=== PATIENT | female | born 2000 | race Caucasian/White ===

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

== ENCOUNTER 2020-10-10 17:24 | Emergency (ER) | payer MEDICAID ==
[~2020-10-10] VITALS: Ht 162.6 cm; Wt 69.4 kg
[2020-10-10 19:22] LABS: Basophils # (auto) 0.1 10 ^3/uL (0-0.2); Basophils % (auto) 0.7 % (0.0-2.0); Eosinophils # (auto) 0.1 10 ^3/uL (0-0.8); Eosinophils % (auto) 0.7 % (0.0-7.0); Hematocrit 41.1 % (36.0-46.0); Hemoglobin 13.8 g/dL (12.2-16.2); Lymphocytes # (auto) 2.3 10 ^3/uL (0.4-5.4); Mean Corpuscular Hemoglobin 30.8 pg (28.0-32.0); Mean Corpuscular Hgb Conc. 33.7 g/dL (32.0-36.0); Mean Corpuscular Volume 91.6 fL (80.0-100.0); Monocytes # (auto) 0.4 10 ^3/uL (0-1.3); Monocytes % (auto) 4.5 % (0.0-12.0); Neutrophils # (auto) 6.3 10 ^3/uL (1.6-8.6); Neutrophils % (auto) 69.1 % (37.0-80.0); Red Blood Cells 4.48 10^6/uL (4.0-5.20); Red Cell Distribution Width 12.6 % (11.8-14.3); White Blood Cell 9.2 10^3/uL (4.4-10.8)
[2020-10-10 19:39] LABS: Albumin 3.8 g/dL (3.4-5.0); BUN/Creatinine Ratio 11.1; Potassium 3.6 mmol/L (3.5-5.1)
[2020-10-10 19:42] LABS: Bilirubin, Total 0.7 mg/dL (0.2-1.0)
[2020-10-10 22:33] LABS: Urine Bacteria FEW /hpf (None Seen); Urine Blood Negative /uL (Negative); Urine Mucus FEW (None Seen); Urine Specific Gravity 1.027 (1.001-1.035); Urine WBC 9 /hpf (0 - 5); Urine WBC Clumps PRESENT /hpf (None Seen)
[2020-10-10] MEDS ORDERED: LIDOCAINE VISCOUS 2% 15ML UD PO ONE (23:15)
[2020-10-10] MEDS ORDERED: ALUM & MAG HYDROX-SIMETH LIQ(MAALOX) 30 ML PO ONE (23:15)
[2020-10-10] MEDS ORDERED: MORPHINE SULFATE 4 MG/ML SYR/VIAL IV ONE (23:15)
[2020-10-10] MEDS ORDERED: ONDANSETRON HCL 4 MG/2 ML VIAL IV ONE (23:15)
[2020-10-10] MEDS ORDERED: SODIUM CHLORIDE 0.9% 1,000 ML IV ONE (23:15)
[2020-10-10] MEDS ORDERED: IOHEXOL 300 MG/ML 100ML BOTTLE IJ ONE (23:37)
[2020-10-11 03:00] VITALS: BP 111/64
== END 2020-10-11 03:37 | disposition home or self-care (01) ==
LOC: ER 17:24
DX: N83.202 Unspecified ovarian cyst, left side (principal); N39.0 Urinary tract infection, site not specified; F41.9 Anxiety disorder, unspecified; J45.909 Unspecified asthma, uncomplicated; F32.9 Major depressive disorder, single episode, unspecified; Z79.899 Other long term (current) drug therapy
CPT/HCPCS: 36415; 74177; 80053; 81001; 81025; 85025; 96361; 96374; 96375; 99285; J2270; J2405; Q9967

== ENCOUNTER 2020-10-14 12:04 | Emergency (ER) | payer MEDICAID ==
[~2020-10-14] VITALS: Ht 162.6 cm; Wt 70.3 kg
[2020-10-14] MEDS ORDERED: ONDANSETRON HCL 4 MG/2 ML VIAL IV ONE (12:30)
[2020-10-14] MEDS ORDERED: MORPHINE SULFATE 4 MG/ML SYR/VIAL IV ONE (12:30)
[2020-10-14 15:17] LABS: Basophils # (auto) 0 10 ^3/uL (0-0.2); Basophils % (auto) 0.2 % (0.0-2.0); Eosinophils # (auto) 0 10 ^3/uL (0-0.8); Eosinophils % (auto) 0.6 % (0.0-7.0); Hematocrit 43.8 % (36.0-46.0); Hemoglobin 14.9 g/dL (12.2-16.2); Lymphocytes % (auto) 15.3 % (10.0-50.0); Mean Corpuscular Hemoglobin 30.7 pg (28.0-32.0); Mean Corpuscular Hgb Conc. 33.9 g/dL (32.0-36.0); Mean Corpuscular Volume 90.5 fL (80.0-100.0); Monocytes # (auto) 0.2 10 ^3/uL (0-1.3); Monocytes % (auto) 3.2 % (0.0-12.0); Neutrophils # (auto) 5.4 10 ^3/uL (1.6-8.6); Neutrophils % (auto) 80.7 % (37.0-80.0); Nucleated Red Blood Cells % 0.1 %; Red Blood Cells 4.84 10^6/uL (4.0-5.20); Red Cell Distribution Width 12.8 % (11.8-14.3); White Blood Cell 6.7 10^3/uL (4.4-10.8)
[2020-10-14 15:34] LABS: Albumin 3.2 g/dL (3.4-5.0); Calcium 8.3 mg/dL (8.5-10.1); Potassium 3.7 mmol/L (3.5-5.1)
[2020-10-14 15:39] LABS: BUN/Creatinine Ratio 16.7; Total Protein 6.7 g/dL (6.4-8.2)
[2020-10-14 16:21] LABS: Urine Bacteria NONE SEEN /hpf (None Seen); Urine Blood Negative /uL (Negative); Urine Mucus FEW (None Seen); Urine Specific Gravity 1.029 (1.001-1.035); Urine WBC <1 /hpf (0 - 5)
[2020-10-15 04:26] VITALS: BP 110/74
== END 2020-10-15 05:38 | disposition home or self-care (01) ==
LOC: EDBD 12:04 → ER 12:04
DX: N83.292 Other ovarian cyst, left side (principal); F41.9 Anxiety disorder, unspecified; J45.909 Unspecified asthma, uncomplicated; F32.9 Major depressive disorder, single episode, unspecified; Z79.899 Other long term (current) drug therapy; Z20.822 Contact with and (suspected) exposure to COVID-19
CPT/HCPCS: 36415; 76830; 76856; 80053; 81001; 82962; 85025; 87426; 96374; 96375; 99285; J2270; J2405

== ENCOUNTER 2021-02-06 00:11 | Emergency (ER) | payer MEDICAID ==
[~2021-02-06] VITALS: Ht 162.6 cm; Wt 68.9 kg
[2021-02-06 01:26] LABS: Albumin 3.8 g/dL (3.4-5.0); BUN/Creatinine Ratio 12.3; Calcium 9.1 mg/dL (8.5-10.1); Potassium 4.4 mmol/L (3.5-5.1)
[2021-02-06 01:27] LABS: Basophils # (auto) 0.1 10 ^3/uL (0-0.2); Basophils % (auto) 0.9 % (0.0-2.0); Eosinophils # (auto) 0.1 10 ^3/uL (0-0.8); Eosinophils % (auto) 0.9 % (0.0-7.0); Hematocrit 44.4 % (36.0-46.0); Lymphocytes # (auto) 3.3 10 ^3/uL (0.4-5.4); Lymphocytes % (auto) 31.2 % (10.0-50.0); Mean Corpuscular Hemoglobin 31.1 pg (28.0-32.0); Mean Corpuscular Hgb Conc. 33.7 g/dL (32.0-36.0); Mean Corpuscular Volume 92.1 fL (80.0-100.0); Monocytes # (auto) 0.6 10 ^3/uL (0-1.3); Monocytes % (auto) 5.3 % (0.0-12.0); Neutrophils # (auto) 6.5 10 ^3/uL (1.6-8.6); Neutrophils % (auto) 61.7 % (37.0-80.0); Nucleated Red Blood Cells % 0.1 %; Red Blood Cells 4.81 10^6/uL (4.0-5.20); Red Cell Distribution Width 14.5 % (11.8-14.3); White Blood Cell 10.5 10^3/uL (4.4-10.8)
[2021-02-06 01:30] LABS: Urine Bacteria NONE SEEN /hpf (None Seen); Urine Blood 3+ /uL (Negative); Urine Specific Gravity 1.023 (1.001-1.035); Urine WBC 14 /hpf (0 - 5)
[2021-02-06 01:30] LABS: Bilirubin, Total 0.3 mg/dL (0.2-1.0); Total Protein 7.1 g/dL (6.4-8.2)
[2021-02-06] MEDS ORDERED: SODIUM CHLORIDE 0.9% 1,000 ML IV ONE (01:45)
[2021-02-06 03:57] VITALS: BP 123/85
== END 2021-02-06 04:23 | disposition home or self-care (01) ==
LOC: ER 00:11
DX: N93.9 Abnormal uterine and vaginal bleeding, unspecified (principal); J45.909 Unspecified asthma, uncomplicated; Z79.899 Other long term (current) drug therapy
CPT/HCPCS: 36415; 76830; 76856; 80053; 81001; 84702; 85025; 86850; 86900; 86901; 96360; 99284; J7030

== ENCOUNTER 2021-02-15 08:47 | Emergency (ER) | payer MEDICAID ==
[~2021-02-15] VITALS: Ht 162.6 cm; Wt 68.9 kg
[2021-02-15 09:58] VITALS: BP 130/88
== END 2021-02-15 10:15 | disposition home or self-care (01) ==
LOC: ER 08:47
DX: J02.9 Acute pharyngitis, unspecified (principal); J01.90 Acute sinusitis, unspecified; J45.909 Unspecified asthma, uncomplicated; Z20.822 Contact with and (suspected) exposure to COVID-19; Z79.899 Other long term (current) drug therapy
CPT/HCPCS: 36415; 87426

== ENCOUNTER 2021-04-05 16:52 | Emergency (ER) | payer MEDICAID ==
[~2021-04-05] VITALS: Ht 162.6 cm; Wt 69.4 kg
[2021-04-05 17:45] LABS: Urine Bacteria FEW /hpf (None Seen); Urine Blood 3+ /uL (Negative); Urine Mucus FEW (None Seen); Urine WBC 133 /hpf (0 - 5)
[2021-04-05] MEDS ORDERED: SUMAtriptan SUCCINATE 25 MG TAB PO ONE (18:45)
[2021-04-05 20:15] LABS: Basophils # (auto) 0.1 10 ^3/uL (0-0.2); Basophils % (auto) 1.1 % (0.0-2.0); Eosinophils # (auto) 0.1 10 ^3/uL (0-0.8); Eosinophils % (auto) 1.1 % (0.0-7.0); Hematocrit 43.7 % (36.0-46.0); Hemoglobin 14.5 g/dL (12.2-16.2); Lymphocytes # (auto) 2.5 10 ^3/uL (0.4-5.4); Lymphocytes % (auto) 36.2 % (10.0-50.0); Mean Corpuscular Hemoglobin 30.6 pg (28.0-32.0); Mean Corpuscular Hgb Conc. 33.2 g/dL (32.0-36.0); Mean Corpuscular Volume 92.3 fL (80.0-100.0); Monocytes # (auto) 0.4 10 ^3/uL (0-1.3); Monocytes % (auto) 6.1 % (0.0-12.0); Neutrophils # (auto) 3.9 10 ^3/uL (1.6-8.6); Neutrophils % (auto) 55.5 % (37.0-80.0); Nucleated Red Blood Cells % 0.2 %; Red Blood Cells 4.73 10^6/uL (4.0-5.20); Red Cell Distribution Width 13.3 % (11.8-14.3); White Blood Cell 6.9 10^3/uL (4.4-10.8)
[2021-04-05 20:29] LABS: Albumin 3.7 g/dL (3.4-5.0); BUN/Creatinine Ratio 12.2; Calcium 8.8 mg/dL (8.5-10.1)
[2021-04-05 20:32] LABS: Bilirubin, Total 0.4 mg/dL (0.2-1.0); Total Protein 7.1 g/dL (6.4-8.2)
[2021-04-05] MEDS ORDERED: CEPH-322 PO (21:07)
[2021-04-05 21:43] VITALS: BP 120/78
== END 2021-04-05 21:44 | disposition home or self-care (01) ==
LOC: ER 16:52
DX: N39.0 Urinary tract infection, site not specified (principal); J45.909 Unspecified asthma, uncomplicated; G43.909 Migraine, unspecified, not intractable, without status migrainosus; Z32.02 Encounter for pregnancy test, result negative
CPT/HCPCS: 36415; 80053; 81001; 81025; 85025; 87086

== ENCOUNTER 2021-04-08 06:11 | Emergency (ER) | payer MEDICAID ==
[~2021-04-08] VITALS: Ht 162.6 cm; Wt 71.7 kg
[~2021-04-08 06:11] MED LIST changes: +CEPH-322 PO
[2021-04-08 06:13] VITALS: BP 131/89
== END 2021-04-08 07:15 | disposition left against medical advice (07) ==
LOC: ER 06:11
DX: R50.9 Fever, unspecified (principal); Z53.21 Procedure and treatment not carried out due to patient leaving prior to being seen by health care provider

== ENCOUNTER 2021-04-28 15:15 | Emergency (ER) | payer SELFPAY ==
[~2021-04-28] VITALS: Ht 162.6 cm; Wt 70.8 kg
[2021-04-28] MEDS ORDERED: HYDROcodone-ACET 5/325MG TAB PO ONE (15:45)
[2021-04-28 16:22] LABS: Urine Bacteria NONE SEEN /hpf (None Seen); Urine Blood 3+ /uL (Negative); Urine Mucus FEW (None Seen); Urine Specific Gravity 1.035 (1.001-1.035); Urine WBC 13 /hpf (0 - 5)
[2021-04-28] MEDS ORDERED: TRAM-297 PO (17:26)
[2021-04-28] MEDS ORDERED: NITR-87 PO (17:26)
[2021-04-28 17:49] VITALS: BP 120/80
== END 2021-04-28 17:50 | disposition home or self-care (01) ==
LOC: ER 15:15
DX: N39.0 Urinary tract infection, site not specified (principal); N83.201 Unspecified ovarian cyst, right side; J45.909 Unspecified asthma, uncomplicated; Z32.02 Encounter for pregnancy test, result negative
CPT/HCPCS: 76856; 81001; 81025

== ENCOUNTER 2021-06-07 09:07 | Emergency (ER) | payer SELFPAY ==
[~2021-06-07] VITALS: Ht 167.6 cm; Wt 70.8 kg
[~2021-06-07 09:07] MED LIST changes: +NITR-87 PO; +TRAM-297 PO
[2021-06-07 10:44] LABS: Basophils # (auto) 0.1 10 ^3/uL (0-0.2); Basophils % (auto) 0.5 % (0.0-2.0); Eosinophils # (auto) 0 10 ^3/uL (0-0.8); Eosinophils % (auto) 0.3 % (0.0-7.0); Hematocrit 37.9 % (36.0-46.0); Lymphocytes # (auto) 2.6 10 ^3/uL (0.4-5.4); Lymphocytes % (auto) 23.4 % (10.0-50.0); Mean Corpuscular Hemoglobin 31.1 pg (28.0-32.0); Mean Corpuscular Hgb Conc. 34.1 g/dL (32.0-36.0); Mean Corpuscular Volume 91.1 fL (80.0-100.0); Monocytes # (auto) 0.8 10 ^3/uL (0-1.3); Monocytes % (auto) 7.2 % (0.0-12.0); Neutrophils # (auto) 7.5 10 ^3/uL (1.6-8.6); Neutrophils % (auto) 68.6 % (37.0-80.0); Nucleated Red Blood Cells % 0.1 %; Red Blood Cells 4.16 10^6/uL (4.0-5.20); Red Cell Distribution Width 13.7 % (11.8-14.3); White Blood Cell 10.9 10^3/uL (4.4-10.8)
[2021-06-07] MEDS ORDERED: SODIUM CHLORIDE 0.9% 1,000 ML IV ONE (11:00)
[2021-06-07] MEDS ORDERED: fentaNYL CITRATE 100 MCG/2 ML VL IV ONE (11:00)
[2021-06-07 11:08] LABS: Albumin 3.6 g/dL (3.4-5.0); Calcium 9.2 mg/dL (8.5-10.1)
[2021-06-07 11:10] LABS: BUN/Creatinine Ratio 14.5; Bilirubin, Total 0.6 mg/dL (0.2-1.0); Total Protein 6.9 g/dL (6.4-8.2)
[2021-06-07 11:38] LABS: Potassium 4.1 mmol/L (3.5-5.1)
[2021-06-07 13:00] LABS: Urine Bacteria NONE SEEN /hpf (None Seen); Urine Blood Negative /uL (Negative); Urine Mucus FEW (None Seen); Urine Specific Gravity 1.024 (1.001-1.035); Urine WBC 1 /hpf (0 - 5)
[2021-06-07] MEDS ORDERED: KETOROLAC TROMETH 30 MG/ML 1ML VIAL IV ONE (14:30)
[2021-06-07 14:49] VITALS: BP 121/79
== END 2021-06-07 14:45 | disposition home or self-care (01) ==
LOC: ER 09:07 → EDBD 09:07 → ER 14:45
DX: N83.201 Unspecified ovarian cyst, right side (principal)
CPT/HCPCS: 36415; 74176; 76830; 76856; 80053; 81001; 85025; 96361; 96374; 96375; 99285; J1885; J3010; J7030

== ENCOUNTER 2021-06-22 20:32 | Emergency (ER) | payer MEDICAID ==
[~2021-06-22] VITALS: Ht 162.6 cm; Wt 70.8 kg
[2021-06-22 22:10] LABS: Basophils # (auto) 0.1 10 ^3/uL (0-0.2); Basophils % (auto) 1.2 % (0.0-2.0); Eosinophils # (auto) 0 10 ^3/uL (0-0.8); Eosinophils % (auto) 0.5 % (0.0-7.0); Hematocrit 39.8 % (36.0-46.0); Hemoglobin 13.5 g/dL (12.2-16.2); Lymphocytes # (auto) 2.3 10 ^3/uL (0.4-5.4); Lymphocytes % (auto) 30.8 % (10.0-50.0); Mean Corpuscular Hgb Conc. 33.9 g/dL (32.0-36.0); Mean Corpuscular Volume 91.5 fL (80.0-100.0); Monocytes # (auto) 0.5 10 ^3/uL (0-1.3); Monocytes % (auto) 6.6 % (0.0-12.0); Neutrophils # (auto) 4.6 10 ^3/uL (1.6-8.6); Neutrophils % (auto) 60.9 % (37.0-80.0); Nucleated Red Blood Cells % 0.1 %; Red Blood Cells 4.35 10^6/uL (4.0-5.20); Red Cell Distribution Width 13.5 % (11.8-14.3); White Blood Cell 7.6 10^3/uL (4.4-10.8)
[2021-06-22 22:29] LABS: Albumin 3.8 g/dL (3.4-5.0); BUN/Creatinine Ratio 8.5
[2021-06-22 22:32] LABS: Bilirubin, Total 0.6 mg/dL (0.2-1.0); Total Protein 7.2 g/dL (6.4-8.2)
[2021-06-23 00:09] VITALS: BP 114/61
== END 2021-06-23 00:10 | disposition home or self-care (01) ==
LOC: EDBD 20:32 → ER 20:32
DX: R53.1 Weakness (principal)
CPT/HCPCS: 36415; 72100; 80053; 84702; 85025

== ENCOUNTER 2023-08-11 22:27 | Emergency (ER) | payer MEDICAID ==
[~2023-08-11] VITALS: Ht 162.6 cm; Wt 63.5 kg
[~2023-08-11 22:27] MED LIST changes: -CEPH-322 PO; +CEPH250C PO; +TRAZ-227 PO; -TRAZ50TA2 PO
[2023-08-11] MEDS: SODIUM CHLORIDE 0.9% 1,000 ML IVB ONE (23:45)
[2023-08-11 23:56] LABS: Basophils # (auto) 0.1 10 ^3/uL (0-0.2); Basophils % (auto) 0.8 % (0.0-2.0); Eosinophils # (auto) 0.1 10 ^3/uL (0-0.8); Eosinophils % (auto) 1.1 % (0.0-7.0); Hematocrit 49.5 % (36.0-46.0); Hemoglobin 16.4 g/dL (12.2-16.2); Lymphocytes # (auto) 4.2 10 ^3/uL (0.4-5.4); Lymphocytes % (auto) 39.6 % (10.0-50.0); Mean Corpuscular Hemoglobin 32.1 pg (28.0-32.0); Mean Corpuscular Hgb Conc. 33.1 g/dL (32.0-36.0); Mean Corpuscular Volume 96.9 fL (80.0-100.0); Monocytes # (auto) 0.7 10 ^3/uL (0-1.3); Monocytes % (auto) 6.8 % (0.0-12.0); Neutrophils # (auto) 5.5 10 ^3/uL (1.6-8.6); Neutrophils % (auto) 51.7 % (37.0-80.0); Nucleated Red Blood Cells % 0.1 %; Red Cell Distribution Width 14.2 % (11.8-14.3); White Blood Cell 10.6 10^3/uL (4.4-10.8)
[2023-08-12 00:10] LABS: Alanine Aminotransferase 13 U/L (7-40); Albumin 4.6 g/dL (3.2-4.8); Alkaline Phosphatase 76 U/L (46-116); Anion Gap 10 (5-15); Aspartate Aminotransferase 14 U/L (13-40); Calcium 10.3 mg/dL (8.7-10.4); Carbon Dioxide 19 mmol/L (20-30); Chloride 109 mmol/L (98-107); Glucose 153 mg/dL (74-106); Potassium 3.4 mmol/L (3.5-5.1); Sodium 138 mmol/L (136-145)
[2023-08-12 00:11] LABS: Acetaminophen < 2.0 UG/ML (10.0-20.0); Bilirubin, Total 0.4 mg/dL (0.2-1.0); Total Protein 7.6 g/dL (5.7-8.2)
[2023-08-12 00:13] LABS: BUN/Creatinine Ratio 7.4 (10.0-20.0); Blood Urea Nitrogen < 5 mg/dL (9-23); Salicylate < 3.0 mg/dL (2.8-20.0)
[2023-08-12] MEDS: ONDANSETRON HCL 4 MG/2 ML VIAL IV ONE (00:31)
[2023-08-12 00:32] LABS: Blood Alcohol < 3.0 mg/dL (<10)
[2023-08-12] MEDS: POTASSIUM EFFERVESENT TAB 25 MEQ PO ONE (09:33)
[2023-08-12 10:03] LABS: Urine Bacteria FEW /hpf (None Seen); Urine Blood Negative /uL (Negative); Urine Mucus FEW (None Seen); Urine Protein, UAD 1+ (Negative); Urine Specific Gravity 1.019 (1.001-1.035); Urine Urobilinogen Normal (Negative); Urine WBC 694 /hpf (0 - 5); Urine WBC Clumps PRESENT /hpf (None Seen)
[2023-08-12 10:05] LABS: Urine Clarity Cloudy (Clear); Urine Color Yellow (Yellow)
[2023-08-12 10:09] LABS: Amphetamine Screen, Urine Neg (NEGATIVE); Barbiturate Scree,Urine Neg (NEGATIVE); Benzodiazephine Screen, Urine Neg (NEGATIVE); Cannabinoid Screen, Urine Pos (NEGATIVE); Cocaine Screen, Urine Neg (NEGATIVE); Opiate Scree,Urine Neg (NEGATIVE); Phencyclidine Screen, Urine Neg (NEGATIVE)
[2023-08-12 19:30] VITALS: PULSE 96; RESP 12; O2SAT 100
[2023-08-13 08:42] VITALS: PULSE 94; RESP 12; O2SAT 96
[2023-08-13 13:41] VITALS: BP 117/80; PULSE 94; RESP 16; TEMP 98; O2SAT 99
== END 2023-08-13 13:52 | disposition short-term general hospital (02) ==
LOC: ER 22:27 → EDBD 22:27 → ER 08-13 13:52
DX: T43.222A Poisoning by selective serotonin reuptake inhibitors, intentional self-harm, initial encounter (principal); R45.851 Suicidal ideations; Z79.899 Other long term (current) drug therapy; Y92.89 Other specified places as the place of occurrence of the external cause
CPT/HCPCS: 36415; 71045; 80053; 80307; 80320; 80329; 81001; 81025; 83735; 85025; 93005; 96361; 96374; 99285; J2405; J7030

== ENCOUNTER 2023-11-16 09:55 | Inpatient (IN) | payer MEDICAID ==
[~2023-11-16] VITALS: Ht 162.6 cm; Wt 66.6 kg
[2023-11-16 10:57] VITALS: PULSE 90; RESP 18; O2SAT 100
[2023-11-16 11:13] LABS: Basophils # (auto) 0.1 10 ^3/uL (0-0.2); Basophils % (auto) 0.3 % (0.0-2.0); Eosinophils # (auto) 0 10 ^3/uL (0-0.8); Eosinophils % (auto) 0.1 % (0.0-7.0); Hematocrit 48.9 % (36.0-46.0); Hemoglobin 16.7 g/dL (12.2-16.2); Lymphocytes # (auto) 1.1 10 ^3/uL (0.4-5.4); Lymphocytes % (auto) 5.9 % (10.0-50.0); Mean Corpuscular Hemoglobin 33.3 pg (28.0-32.0); Mean Corpuscular Hgb Conc. 34.2 g/dL (32.0-36.0); Mean Corpuscular Volume 97.3 fL (80.0-100.0); Monocytes # (auto) 0.4 10 ^3/uL (0-1.3); Monocytes % (auto) 2.1 % (0.0-12.0); Neutrophils # (auto) 16.3 10 ^3/uL (1.6-8.6); Neutrophils % (auto) 91.6 % (37.0-80.0); Platelet Count (auto) 282 10^3/uL (140-450); Red Blood Cells 5.03 10^6/uL (4.0-5.20); Red Cell Distribution Width 12.6 % (11.8-14.3); White Blood Cell 17.8 10^3/uL (4.4-10.8)
[2023-11-16] MEDS: LORazepam 2MG/ML-1ML VIAL IV ONE (11:21)
[2023-11-16] MEDS: ONDANSETRON HCL 4 MG/2 ML VIAL IV ONE (11:26)
[2023-11-16] MEDS: SODIUM CHLORIDE 0.9% 1,000 ML IV ONE ×2 (11:26→20:10)
[2023-11-16 11:29] LABS: Acetaminophen < 2.0 UG/ML (10.0-20.0); Alanine Aminotransferase 13 U/L (7-40); Albumin 4.6 g/dL (3.2-4.8); Alkaline Phosphatase 74 U/L (46-116); Anion Gap 13 (5-15); Aspartate Aminotransferase 15 U/L (13-40); BUN/Creatinine Ratio 7.1 (10.0-20.0); Bilirubin, Total 1.6 mg/dL (0.2-1.0); Blood Urea Nitrogen 6 mg/dL (9-23); Calcium 10.5 mg/dL (8.7-10.4); Carbon Dioxide 20 mmol/L (20-30); Chloride 105 mmol/L (98-107); Glucose 191 mg/dL (74-106); Potassium 3.5 mmol/L (3.5-5.1); Sodium 138 mmol/L (136-145); Total Protein 7.4 g/dL (5.7-8.2)
[2023-11-16 11:30] LABS: Lactic Acid w/Reflex 2.4 mmol/L (0.4-2.0)
[2023-11-16 11:33] LABS: Salicylate < 3.0 mg/dL (2.8-20.0)
[2023-11-16] MEDS: KETOROLAC TROMETH 30 MG/ML 1ML VIAL IV ONE (13:11)
[2023-11-16] MEDS: METOCLOPRAMIDE HCL 5MG/ml INJ 2ml VIAL IV ONE (13:11)
[2023-11-16 18:12] LABS: Amphetamine Screen, Urine Neg (NEGATIVE); Barbiturate Scree,Urine Neg (NEGATIVE); Benzodiazephine Screen, Urine Neg (NEGATIVE)
[2023-11-16 18:13] LABS: Cannabinoid Screen, Urine Pos (NEGATIVE); Cocaine Screen, Urine Neg (NEGATIVE); Opiate Scree,Urine Neg (NEGATIVE); Phencyclidine Screen, Urine Neg (NEGATIVE)
[2023-11-16 18:16] LABS: Urine Amorphous Crystal FEW /hpf (None Seen); Urine Bacteria FEW /hpf (None Seen); Urine Blood 3+ /uL (Negative); Urine Clarity Turbid (Clear); Urine Color Yellow (Yellow); Urine Mucus FEW (None Seen); Urine Protein, UAD 1+ (Negative); Urine Specific Gravity 1.032 (1.001-1.035); Urine Urobilinogen 6 mg/dL (Negative); Urine WBC 18 /hpf (0 - 5)
[2023-11-16] MEDS: IOHEXOL 300 MG/ML 100ML BOTTLE IJ ONE (20:32)
[2023-11-16] MEDS ORDERED: HYDROcodone-ACET 5/325MG TAB PO PRN (22:30)
[2023-11-16] MEDS ORDERED: ONDANSETRON HCL 4 MG/2 ML VIAL IV PRN (22:30)
[2023-11-16] MEDS ORDERED: ACETAMINOPHEN 325 MG TAB PO PRN (22:30)
[2023-11-16] MEDS: metroNIDAZOLE 500MG/100ML 100 ML IV ONE (22:35)
[2023-11-16] MEDS: ceFAZolin 2 GM/D5W50ml 50 ML IV ONE (22:35)
[2023-11-17] VITALS (7 sets, daily range): BP systolic 108–129; BP diastolic 55–95; PULSE 60–100; RESP 16–20; TEMP 97.8–98.5; O2SAT 93–100
[2023-11-17] MEDS ORDERED: ESCI1TAB37 PO (03:32)
[2023-11-17] MEDS ORDERED: OXCA150T61 (03:32)
[2023-11-17] MEDS ORDERED: SERT-206 PO (03:32)
[2023-11-17] MEDS ORDERED: ARIP5TAB22 PO (03:32)
[2023-11-17] MEDS ORDERED: GABA-1250 PO (03:32)
[2023-11-17] MEDS: metroNIDAZOLE 500MG/100ML 100 ML IV SCH (04:56)
[2023-11-17 05:56] LABS: Basophils # (auto) 0 10 ^3/uL (0-0.2); Basophils % (auto) 0.3 % (0.0-2.0); Eosinophils # (auto) 0 10 ^3/uL (0-0.8); Eosinophils % (auto) 0.2 % (0.0-7.0); Hematocrit 40.8 % (36.0-46.0); Hemoglobin 13.9 g/dL (12.2-16.2); Lymphocytes # (auto) 2.1 10 ^3/uL (0.4-5.4); Lymphocytes % (auto) 21.7 % (10.0-50.0); Mean Corpuscular Hemoglobin 33.7 pg (28.0-32.0); Mean Corpuscular Hgb Conc. 34.1 g/dL (32.0-36.0); Mean Corpuscular Volume 98.8 fL (80.0-100.0); Monocytes # (auto) 0.7 10 ^3/uL (0-1.3); Monocytes % (auto) 7.7 % (0.0-12.0); Neutrophils # (auto) 6.8 10 ^3/uL (1.6-8.6); Neutrophils % (auto) 70.1 % (37.0-80.0); Platelet Count (auto) 207 10^3/uL (140-450); Red Blood Cells 4.13 10^6/uL (4.0-5.20); Red Cell Distribution Width 12.8 % (11.8-14.3); White Blood Cell 9.7 10^3/uL (4.4-10.8)
[2023-11-17 06:16] LABS: Albumin 3.8 g/dL (3.2-4.8); Alkaline Phosphatase 56 U/L (46-116); Anion Gap 7 (5-15); Aspartate Aminotransferase 9 U/L (13-40); BUN/Creatinine Ratio 8.1 (10.0-20.0); Bilirubin, Total 1.2 mg/dL (0.2-1.0); Blood Urea Nitrogen 6 mg/dL (9-23); Calcium 9.2 mg/dL (8.7-10.4); Carbon Dioxide 23 mmol/L (20-30); Chloride 109 mmol/L (98-107); Glucose 96 mg/dL (74-106); Potassium 3.3 mmol/L (3.5-5.1); Sodium 139 mmol/L (136-145); Total Protein 5.9 g/dL (5.7-8.2)
[2023-11-17 06:23] LABS: Alanine Aminotransferase < 9 U/L (7-40)
[2023-11-17] MEDS: SODIUM CHLORIDE 0.9% 1,000 ML IV SCH (08:20)
[2023-11-17] MEDS: cefTRIAXone 1GM/50ML D5W 50 ML IV SCH (08:20)
[2023-11-17 08:24] LABS: Magnesium 1.9 mg/dL (1.6-2.6)
[2023-11-17 08:25] LABS: Phosphorus 2.8 mg/dL (2.4-5.1)
[2023-11-17] MEDS ORDERED: POTASSIUM CHL 20MEQ/100ML 100 ML IV SCH (08:30)
[2023-11-17 09:17] LABS: INR 1.03 (0.9-1.15); Partial Thromboplastin Time 30.7 SEC (24.5-34.5); Prothrombin Time 10.9 sec (9.3-11.8)
[2023-11-17] MEDS: POTASSIUM EFFERVESENT TAB 25 MEQ PO ONE (11:00)
[2023-11-17 12:11] LABS: Amphetamine Screen, Urine Neg (NEGATIVE); Barbiturate Scree,Urine Neg (NEGATIVE); Benzodiazephine Screen, Urine Neg (NEGATIVE); Cannabinoid Screen, Urine Pos (NEGATIVE); Cocaine Screen, Urine Neg (NEGATIVE); Opiate Scree,Urine Neg (NEGATIVE); Phencyclidine Screen, Urine Neg (NEGATIVE)
[2023-11-17] MEDS: PANTOPRAZOLE 40 MG/10 ML VIAL INJ IV ONE (12:19)
[2023-11-17] MEDS: OXcarbazepine 300 MG TAB PO SCH (21:08)
[2023-11-18 01:00] VITALS: BP 120/93; PULSE 91; RESP 20; TEMP 98.1; O2SAT 97
[2023-11-18 05:00] VITALS: BP 148/83; PULSE 78; RESP 22; TEMP 98.6; O2SAT 99
[2023-11-18 06:29] LABS: Chloride 108 mmol/L (98-107); Sodium 140 mmol/L (136-145)
[2023-11-18 06:30] LABS: Anion Gap 6 (5-15); Calcium 9.5 mg/dL (8.7-10.4); Carbon Dioxide 26 mmol/L (20-30)
[2023-11-18 06:33] LABS: Basophils # (auto) 0.1 10 ^3/uL (0-0.2); Basophils % (auto) 0.9 % (0.0-2.0); Eosinophils # (auto) 0 10 ^3/uL (0-0.8); Eosinophils % (auto) 0.5 % (0.0-7.0); Hematocrit 43.5 % (36.0-46.0); Hemoglobin 14.9 g/dL (12.2-16.2); Lymphocytes # (auto) 2.9 10 ^3/uL (0.4-5.4); Lymphocytes % (auto) 33.5 % (10.0-50.0); Mean Corpuscular Hgb Conc. 34.3 g/dL (32.0-36.0); Mean Corpuscular Volume 99.3 fL (80.0-100.0); Monocytes # (auto) 0.7 10 ^3/uL (0-1.3); Monocytes % (auto) 7.7 % (0.0-12.0); Neutrophils % (auto) 57.4 % (37.0-80.0); Platelet Count (auto) 251 10^3/uL (140-450); Red Blood Cells 4.38 10^6/uL (4.0-5.20); Red Cell Distribution Width 12.7 % (11.8-14.3); White Blood Cell 8.7 10^3/uL (4.4-10.8)
[2023-11-18 06:35] LABS: Glucose 90 mg/dL (74-106)
[2023-11-18 06:36] LABS: Magnesium 1.9 mg/dL (1.6-2.6)
[2023-11-18 06:37] LABS: BUN/Creatinine Ratio 6.2 (10.0-20.0); Blood Urea Nitrogen < 5 mg/dL (9-23)
[2023-11-18 06:38] LABS: Phosphorus 2.2 mg/dL (2.4-5.1)
[2023-11-18 07:36] VITALS: BP 127/80; PULSE 100; RESP 15; TEMP 98.4; O2SAT 100
[2023-11-18] MEDS: SERTRALINE HCL 50 MG TAB PO SCH (09:35)
[2023-11-18] MEDS: PANTOPRAZOLE 40 MG/10 ML VIAL INJ IV SCH (09:35)
[2023-11-18] MEDS: CITALOPRAM HYDROBR 20 MG TAB PO SCH (09:36)
[2023-11-18] MEDS: GABAPENTIN 300 MG CAP PO SCH (09:36)
[2023-11-18] MEDS: ARIPIPRAZOLE 5 MG PO SCH (09:36)
[2023-11-18] MEDS ORDERED: PATIENTS OWN MEDICATION (Citalopram Hydrobromide 40 MG) PO SCH (10:00)
[2023-11-18] MEDS ORDERED: PATIENTS OWN MEDICATION (Escitalopram Oxalate 1 TAB) PO SCH (10:00)
[2023-11-18] MEDS ORDERED: CIPR500T4 PO (10:26)
[2023-11-18] MEDS ORDERED: METR-344 PO (10:26)
[2023-11-18 11:30] VITALS: BP 129/84; PULSE 100; RESP 16; TEMP 98.8; O2SAT 99
[2023-11-19 08:53] LABS: Hepatitis B Surface Antigen Negative (Negative)
[2023-11-19 09:14] LABS: Hepatitis A Ab IgM Negative; Hepatitis B Core IgM Negative
[2023-11-19 09:15] LABS: Hepatitis C Antibody Negative (Negative)
== END 2023-11-18 12:15 | disposition home or self-care (01) | DRG 720 ==
LOC: ER 10:01 → OVERFLOW 22:29 → EAST 11-17 02:47
PROVIDERS: ADMIT Internal Medicine Pulmonary Disease; ATTEND Internal Medicine Pulmonary Disease
DX: A41.9 Sepsis, unspecified organism (principal); E80.6 Other disorders of bilirubin metabolism; F32.A Depression, unspecified; K52.9 Noninfective gastroenteritis and colitis, unspecified; N39.0 Urinary tract infection, site not specified; K59.00 Constipation, unspecified; Z88.1 Allergy status to other antibiotic agents; Z91.51 Personal history of suicidal behavior; Z95.0 Presence of cardiac pacemaker
CPT/HCPCS: 36415; 71045; 74177; 76705; 80048; 80053; 80061; 80074; 80307; 80320; 80329; 81001; 81025; 82306; 82607; 83036; 83605; 83735; 84100; 84443; 84702; 85025; 85610; 85730; 87040; 87086; 87493; 93005; 96365; 96375; 99291; G0378; J1885; J2405; J2470; J3490

== ENCOUNTER 2024-01-18 16:41 | Emergency (ER) | payer MEDICAID ==
[~2024-01-18] VITALS: Ht 162.6 cm; Wt 59.1 kg
[~2024-01-18 16:41] MED LIST changes: +ARIP5TAB22 PO; +CIPR500T4 PO; +ESCI1TAB37 PO; +GABA-1250 PO; +METR-344 PO; -NITR-87 PO; +OXCA150T61; +SERT-206 PO
[2024-01-18 17:08] VITALS: BP 163/79; RESP 16; O2SAT 100
[2024-01-18 18:00] LABS: Basophils # (auto) 0.1 10 ^3/uL (0-0.2); Basophils % (auto) 0.6 % (0.0-2.0); Eosinophils # (auto) 0.1 10 ^3/uL (0-0.8); Eosinophils % (auto) 0.9 % (0.0-7.0); Hematocrit 43.8 % (36.0-46.0); Hemoglobin 14.5 g/dL (12.2-16.2); Lymphocytes # (auto) 2.1 10 ^3/uL (0.4-5.4); Lymphocytes % (auto) 22.8 % (10.0-50.0); Mean Corpuscular Hemoglobin 32.5 pg (28.0-32.0); Mean Corpuscular Hgb Conc. 33.2 g/dL (32.0-36.0); Mean Corpuscular Volume 97.9 fL (80.0-100.0); Monocytes # (auto) 0.4 10 ^3/uL (0-1.3); Monocytes % (auto) 4.8 % (0.0-12.0); Neutrophils # (auto) 6.6 10 ^3/uL (1.6-8.6); Neutrophils % (auto) 70.9 % (37.0-80.0); Platelet Count (auto) 252 10^3/uL (140-450); Red Blood Cells 4.47 10^6/uL (4.0-5.20); Red Cell Distribution Width 12.6 % (11.8-14.3); White Blood Cell 9.3 10^3/uL (4.4-10.8)
[2024-01-18 18:15] LABS: Alanine Aminotransferase 12 U/L (7-40); Albumin 4.4 g/dL (3.2-4.8); Alkaline Phosphatase 70 U/L (46-116); Anion Gap 5 (5-15); Aspartate Aminotransferase 10 U/L (13-40); BUN/Creatinine Ratio 10.3 (10.0-20.0); Bilirubin, Total 0.7 mg/dL (0.2-1.0); Blood Urea Nitrogen 7 mg/dL (9-23); Calcium 9.6 mg/dL (8.7-10.4); Carbon Dioxide 26 mmol/L (20-31); Chloride 107 mmol/L (98-107); Glucose 92 mg/dL (74-106); Lipase 28 U/L (12-53); Potassium 3.7 mmol/L (3.5-5.1); Sodium 138 mmol/L (136-145); Total Protein 6.7 g/dL (5.7-8.2)
[2024-01-18 18:52] VITALS: PULSE 84
== END 2024-01-18 22:32 | disposition left against medical advice (07) ==
LOC: ER 16:41 → EDBD 16:41 → ER 22:32
DX: R10.31 Right lower quadrant pain (principal); R10.2 Pelvic and perineal pain; G40.909 Epilepsy, unspecified, not intractable, without status epilepticus; F84.0 Autistic disorder; Z95.0 Presence of cardiac pacemaker; Z53.29 Procedure and treatment not carried out because of patient's decision for other reasons; Z79.899 Other long term (current) drug therapy; Z88.1 Allergy status to other antibiotic agents
CPT/HCPCS: 36415; 74176; 80053; 83605; 83690; 84484; 84702; 85025; 93005

== ENCOUNTER 2024-03-19 17:03 | Emergency (ER) | payer MEDICAID ==
[~2024-03-19] VITALS: Ht 162.6 cm; Wt 56.0 kg
[2024-03-19 17:16] VITALS: BP 141/90; RESP 20; O2SAT 100
--- NOTE | 2024-03-19 17:21 | ED.PDOC ---
History of Present Illness HPI Comments Dr Valiente pacemaker in Jan [age] year old female presents to the ED with chief complaint of abdominal pain and chest pain. Patient reports that she has been experiencing abdominal pain with associated nausea, vomiting, and hematemesis noted for the past 4 days, however, she has also been dealing with SOB and chest pain for the past month. Patient states she had a pacemaker placed by Dr. Valiente at [place] in December, but is not sure why. Patient notes she has not followed up with Cardiology. Patient reports that she had a positive test yesterday, LMP was on 02/28/24. Patient denies any diarrhea, dizziness, headache, fever, or chills. Time Seen by MD: 17:16 Primary Care Provider: [facility] Reviewed Notes: Nurses Notes, Medications, Allergies Allergies: Coded Allergies: Vancomycin (Verified Allergy, Severe, 11/16/23) Home Meds Active Scripts Metronidazole (Flagyl) 500 Mg Tab, 1 TAB PO TID, #21 TAB Prov:DON SARAVIA MD 11/18/23 Ciprofloxacin Hcl (Ciprofloxacin Hcl) 500 Mg Tab, 1 TAB PO BID, #14 TAB Prov:DON SARAVIA MD 11/18/23 Tramadol Hcl (Ultram) 50 Mg Tab, 50 MG PO Q8HP PRN for 5 Days, #20 BOT Prov:KATARINA FREED MD 04/28/21 Cephalexin (KEFLEX CAPSULE) 250 Mg Cp, 250 MG PO QID for 5 Days, #20 TAB Prov:CRISTIAN ARMENTA MD 04/05/21 Albuterol Sulfate (VENTOLIN MDI) 90 Mcg Ih, 2 PUFF IN Q6HP PRN, #1 AER Prov:THIAGO THURSTON N.P. 04/05/13 Reported Medications Escitalopram Oxalate (ESCITALOPRAM OXALATE) 20 Mg Tab, 1 TAB PO DAILY 11/17/23 Sertraline Hcl (Sertraline Hcl) 50 Mg Tab, 1 TAB PO DAILY 11/17/23 Aripiprazole (Aripiprazole) 5 Mg Tab, 2 TAB PO DAILY 11/17/23 Gabapentin (Gabapentin) 300 Mg Cap, PO 11/17/23 Oxcarbazepine (OXTELLAR XR) 150 Mg Tab 11/17/23 Oxcarbazepine (Trileptal) 600 Mg Tab, 300 MG PO BID, TAB 06/04/16 Trazodone Hcl (Trazodone Hcl) 50 Mg Tab, 50 MG PO HS, TAB 06/04/16 Citalopram Hydrobromide (Citalopram Hydrobromide) 40 Mg Tab, 40 MG PO DAILY for 30 Days, MG 06/04/16 Information Source: Patient Mode of Arrival: Ambulatory Severity: Moderate Timing: Days Duration: Since onset Prehospital treatment: None Past Medical History PAST MEDICAL HISTORY: Asthma, Seizures Past Medical History (Other): neuropathy Surgical History: Pacemaker 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 Family History Family History: Reviewed,noncontributory to illness Social History Smoker: Non-Smoker Alcohol: Denies ETOH Use Drugs: Marijuana Lives In: Home Constitutional: denies: chills, diaphoresis, fatigue, fever, malaise, sweats, weakness, others EENTM: denies: blurred vision, double vision, ear bleeding, ear discharge, ear drainage, ear pain, ear ringing, eye pain, eye redness, hearing loss, mouth pain, mouth swelling, nasal discharge, nose bleeding, nose congestion, nose pain, photophobia, tearing, throat pain, throat swelling, voice changes, others Respiratory: reports: shortness of breath; denies: cough, hemoptysis, orthopnea, SOB at rest, SOB with excertion, stridor, wheezing, others Cardiovascular: reports: chest pain; denies: dizzy spells, diaphoresis, Dyspnea on exertion, edema, irregular heart beat, left arm pain, lightheadedness, palpitations, PND, syncope, others Gastrointestinal: reports: abdominal pain, hematemesis, nausea, vomiting; denies: abdomen distended, blood streaked bowels, constipated, diarrhea, dysphagia, difficulty swallowing, melena, poor appetite, poor fluid intake, rectal bleeding, rectal pain, others Genitourinary: denies: abnormal vagina bleeding, burning, dyspareunia, dysuria, flank pain, frequency, hematuria, incontinence, pain, , vagina discharge, urgency, others Neurological: denies: dizziness, fainting, headache, left sided numbness, left sided weakness, numbness, paresthesia, pre-existing deficit, right sided numbness, right sided weakness, seizure, speech problems, tingling, tremors, weakness, others Musculoskeletal: denies: back pain, gout, joint pain, joint swelling, muscle pain, muscle stiffness, neck pain, others Integumetry: denies: bruises, change in color, change in hair/nails, dryness, laceration, lesions, lumps, rash, wounds, others Allergic/Immunocompromised: denies: Difficulty Healing, Frequent Infections, Hives, Itching, others Hematologic/Lymphatic: denies: anemia, blood clots, easy bleeding, easy bruising, swollen glands, others Endocrine: denies: excessive hunger, excessive sweating, excessive thirst, excessive urination, flushing, intolerance to cold, intolerance to heat, unexplained weight gain, unexplained weight loss, others Psychiatric: denies: anxiety, bipolar disorder, depression, hopeless, panic disorder, schizophrenia, sleepless, suicidal, others All Other Systems: Reviewed and Negative Physical Exam General Appearance: No Apparent Distress, Normal HEENT: Normal ENT Inspection, PERRL/EOMI Neck: Full Range of Motion, Non-Tender, Normal, Normal Inspection Respiratory: Chest Non-Tender, Lungs Clear, No Accessory Muscle Use, No Respiratory Distress, Normal Breath Sounds Cardiovascular: No Edema, No JVD, No Murmur, No Gallop, Normal Peripheral Pulses, Regular Rate/Rhythm Breast Exam: Deferred Gastrointestinal: No Organomegaly, Non Tender, No Pulsatile Mass, Normal Bowel Sounds, Soft Genitalia: Deferred Pelvic: Deferred Rectal: Deferred Extremities: No calf tenderness, Normal capillary refill, Normal inspection, Normal range of motion, Non-tender, No pedal edema Musculoskeletal : Apperance: Normal Neurologic: Alert, top waddy II-XII nml as Tested, No Motor Deficits, Normal Affect, Normal Mood, No Sensory Deficits Cerebellar Function: Normal Reflexes: Normal Skin: Dry, Normal Color, Warm Lymphatic: No Adenopathy Was a procedure done? Was a procedure done?: No Differential Dx Considerations may include: chest wall pain, angina, pacer lead fracture, other pacer failure. hyperemesis gravidarum, dehydration, electrolyte disorders, molar , multiple gestational X-Ray, Labs, Meds, VS Vital Signs Date Time Temp Pulse Resp B/P (MAP) Pulse Ox O2 Delivery O2 Flow Rate FiO2 03/19/24 18:02 80 03/19/24 17:25 96 03/19/24 17:16 97.9 85 20 141/90 (107) 100 Lab Test 03/19/24 18:36 Range/Units White Blood Count 10.2 4.4-10.8 10^3/uL Red Blood Count 4.18 4.0-5.20 10^6/uL Hemoglobin 13.8 12.2-16.2 g/dL Hematocrit 41.0 36.0-46.0 % Mean Corpuscular Volume 98.2 80.0-100.0 fL Mean Corpuscular Hemoglobin 33.1 H 28.0-32.0 pg Mean Corpuscular Hemoglobin Concent 33.7 32.0-36.0 g/dL Red Cell Distribution Width 12.9 11.8-14.3 % Platelet Count 225 140-450 10^3/uL Mean Platelet Volume 8.3 6.9-10.8 fL Neutrophils (%) (Auto) 74.7 37.0-80.0 % Lymphocytes (%) (Auto) 18.2 10.0-50.0 % Monocytes (%) (Auto) 6.6 0.0-12.0 % Eosinophils (%) (Auto) 0.2 0.0-7.0 % Basophils (%) (Auto) 0.3 0.0-2.0 % Neutrophils # (Auto) 7.6 1.6-8.6 10 ^3/uL Lymphocytes # (Auto) 1.8 0.4-5.4 10 ^3/uL Monocytes # (Auto) 0.7 0-1.3 10 ^3/uL Eosinophils # (Auto) 0 0-0.8 10 ^3/uL Basophils # (Auto) 0 0-0.2 10 ^3/uL Nucleated Red Blood Cells 0.0 % Sodium Level 140 136-145 mmol/L Potassium Level 3.2 L 3.5-5.1 mmol/L Chloride Level 108 H 98-107 mmol/L Carbon Dioxide Level 21 20-31 mmol/L Anion Gap 11 5-15 Blood Urea Nitrogen 7 L 9-23 mg/dL Creatinine 0.74 0.550-1.02 mg/dL Glomerular Filtration Rate Calc 117 >90 mL/min BUN/Creatinine Ratio 9.5 L 10.0-20.0 Serum Glucose 93 74-106 mg/dL Calcium Level 9.9 8.7-10.4 mg/dL Troponin I High Sensitivity < 3 L </=34 ng/L Beta HCG, Quantitative 30300.2 H 1.5-4.2 mIU/mL Current Medications Medications (Trade) Dose Ordered Sig/Leta Route Start Time Stop Time Status Last Admin Ondansetron HCl (Zofran Po) 4 mg ONCE ONCE PO 03/19/24 17:30 03/19/24 17:32 DC 03/19/24 18:09 Time of 1ST Reevaluation: 18:16 Reevaluation 1ST: Unchanged Time of 2ND Reevaluation: 21:30 Reevaluation 2ND: Improved Patient Education/Counseling: Diagnosis, Treatment, Prognosis, Need For Follow Up Family Education/Counseling: No Family Present Additional Information - I reviewed the following notes from patient's past medical encounters: 01/18/24 for abdominal pain - The following tests were ordered, and results were reviewed by me: CXR, OB US, EKG, Beta HCG Quant, CBC, CMP, Troponin, RH Type, UA - I reviewed and agreed with the following test results read by other provider: CXR and OB US - I discussed treatments and results with medical personnel. pt has not had any arrhythmias, pacer is functional ,without any signs of infection. is healthy. she is stable for discharge to follow up with Dr Valiente. i will start her on zofran for hyperemesis gravidarum Departure 1 Departure Time of Disposition: 21:31 Impression: Primary Impression: Chest wall pain Additional Impression: Hyperemesis gravidarum Disposition: HOME / SELF CARE / HOMELESS Condition: Good e-Prescriptions Ondansetron Odt 4MG Tab (ZOFRAN PO) 4 Mg Tb 4 MG PO Q4HP PRN for 5 Days, #25 TAB ODT TAB-DISSOLVE IN MOUTH, THEN SWALLOW Prov: MUSTAPHA MORRIS MD 03/19/24 Discharged With: Self Critical Care Note Critical Care Time?: Yes (55 min-critical care time only) Critical care comment: due to concerns for patient's condition deteriorating, the care required my highest level of attention and readiness to intervene. i assessed the patient, relevant medical records, ordered the appropriate tests and treatments and communicated with medical personnel and consultants. i reassess the patient's test results and for the response to treatments. i formulated a plan of care. total critical care time excludes any procedures Stability Stability form required: No Heart Score Heart Score: Heart Score Response (Comments) Value History Moderate Suspicious 1 EKG Normal 0 Age <45 0 Risk Factors 1 or 2 risk factors 1 Troponin Normal limit 0 Total 2 I personally scribed for MUSTAPHA MORRIS MD ([facility] on 03/19/24 at 17:21. Electronically submitted by Cesario Remy ([email or web address]). I personally scribed for MUSTAPHA MORRIS MD ([email or web address]) on 03/19/24 at 17:24. Electronically submitted by Cesario Remy ([email or web address]). MUSTAPHA MORRIS MD Mar 19, 2024 17:21
[2024-03-19 18:02] VITALS: PULSE 80
[2024-03-19] MEDS: ONDANSETRON ODT 4 MG TAB PO ONE (18:09)
[2024-03-19 19:02] LABS: Basophils # (auto) 0 10 ^3/uL (0-0.2); Basophils % (auto) 0.3 % (0.0-2.0); Eosinophils # (auto) 0 10 ^3/uL (0-0.8); Eosinophils % (auto) 0.2 % (0.0-7.0); Hemoglobin 13.8 g/dL (12.2-16.2); Lymphocytes # (auto) 1.8 10 ^3/uL (0.4-5.4); Lymphocytes % (auto) 18.2 % (10.0-50.0); Mean Corpuscular Hemoglobin 33.1 pg (28.0-32.0); Mean Corpuscular Hgb Conc. 33.7 g/dL (32.0-36.0); Mean Corpuscular Volume 98.2 fL (80.0-100.0); Monocytes # (auto) 0.7 10 ^3/uL (0-1.3); Monocytes % (auto) 6.6 % (0.0-12.0); Neutrophils # (auto) 7.6 10 ^3/uL (1.6-8.6); Neutrophils % (auto) 74.7 % (37.0-80.0); Platelet Count (auto) 225 10^3/uL (140-450); Red Blood Cells 4.18 10^6/uL (4.0-5.20); Red Cell Distribution Width 12.9 % (11.8-14.3); White Blood Cell 10.2 10^3/uL (4.4-10.8)
[2024-03-19 19:12] LABS: Sodium 140 mmol/L (136-145)
[2024-03-19 19:14] LABS: Anion Gap 11 (5-15); Calcium 9.9 mg/dL (8.7-10.4); Carbon Dioxide 21 mmol/L (20-31); Chloride 108 mmol/L (98-107); Potassium 3.2 mmol/L (3.5-5.1)
--- NOTE | 2024-03-19 19:15 | ECG ---
[facility] Test Date: 2024-03-19 Test Time: 18:02:29 Pat Name: ADALGISA MOTTA Department: er Room: Gender: F Camp Attendant: rosanna : 2000 Requested By: MUSTAPHA MORRIS Order Number: [id number] Reading MD: Adan White Measurements Intervals [place] Rate: 80 P: 0 DC: 107 QRS: 83 QRSD: 96 T: 46 QT: 386 QTc: 446 Interpretive Statements Atrial-paced rhythm Electronically Signed On 03-20-2024 14:16:37 PST by Adan White Please click the below link to view image of tracing.
[2024-03-19 19:19] LABS: BUN/Creatinine Ratio 9.5 (10.0-20.0); Glucose 93 mg/dL (74-106)
[2024-03-19 19:22] LABS: Blood Urea Nitrogen 7 mg/dL (9-23)
--- NOTE | 2024-03-19 20:32 | DVH ---
OBSTETRIC ULTRASOUND PRIOR TO 14 WEEKS CLINICAL INDICATION: vomiting beta HCG [id number] TECHNIQUE: Multiple grayscale ultrasound images were obtained of the pelvis via transabdominal and tr ansvaginal approach for obstetric evaluation. Limited color Doppler and spectral Doppler acquisitions were also obtained. COMPARISON: None FINDINGS: Uterus: 8.1 x 4.6 x 4.3 cm. There is a single intrauterine gestational sac is visualized. A dian e is visualized measuring 0.33 cm compatible with an estimated gestational age of 6 weeks, 0 days. F etal cardiac activity is present with heart rate of 111 beats per minute. A normal yolk sac is prese nt. Right adnexa: right ovary 3.9 x 1.9 x 3.1 cm. Normal arterial blood flow in the ovary. No right adnex al mass seen. Small corpus luteum cyst in the right ovary measures 1.6 cm. Left adnexa: left ovary is not visualized. No left adnexal mass seen. Other: None IMPRESSION: Single intrauterine with an estimated gestational age of 5 weeks, 5 days, corresponding t o an estimated date of delivery of 11/14/2024.
--- NOTE | 2024-03-19 20:37 | DVH ---
EXAM: XY CHEST PORTABLE CLINICAL HISTORY: cp TECHNIQUE: Single AP view of the chest WID: COMPARISON: XY CHEST XRAY 1 VIEW on DOS: 11/17/23 FINDINGS: Lines and tubes: There is a left-sided dual lead pacemaker in place. Chest: The heart size and pulmonary vasculature is within normal limits. No pleural effusion, pneumothorax, or consolidation. The osseous structures are grossly intact. IMPRESSION: No acute cardiopulmonary abnormality.
[2024-03-19] MEDS ORDERED: ZOFR4T PO (21:32)
--- NOTE | 2024-03-25 13:52 | ECG ---
[facility] Test Date: 2024-03-19 Test Time: 17:09:15 Pat Name: ADALGISA MOTTA Department: ER Room: Gender: F Rn Orthopaedic: DR ESCOBARB: 2000 Requested By: MUSTAPHA MORRIS Order Number: [id number] Reading MD: Measurements Intervals [place] Rate: 96 P: 0 OK: 108 QRS: 41 QRSD: 99 T: 35 QT: 364 QTc: 460 Interpretive Statements Atrial-paced rhythm Please click the below link to view image of tracing.
== END 2024-03-19 22:15 | disposition home or self-care (01) ==
LOC: ER 17:03
DX: O21.0 Mild hyperemesis gravidarum (principal); R07.89 Other chest pain; O99.511 Diseases of the respiratory system complicating pregnancy, first trimester; J45.909 Unspecified asthma, uncomplicated; Z3A.01 Less than 8 weeks gestation of pregnancy; Z79.899 Other long term (current) drug therapy; Z88.1 Allergy status to other antibiotic agents
CPT/HCPCS: 36415; 71045; 76801; 80048; 84484; 84702; 85025; 86900; 86901; 93005; 99285; Q0162

== ENCOUNTER 2025-01-08 13:26 | Emergency (ER) | payer MEDICAID ==
[~2025-01-08] VITALS: Ht 167.6 cm; Wt 68.0 kg
[~2025-01-08 13:26] MED LIST changes: +ZOFR4T PO
[2025-01-08] MEDS: SODIUM CHLORIDE 0.9% 1,000 ML IV ONE ×2 (13:45→15:10)
--- NOTE | 2025-01-08 13:47 | ED.PDOC ---
History of Present Illness HPI Comments 24-year-old female brought by paramedics because he has been having chest pain abdominal pain nausea vomiting since 2:00 a.m.. She does use marijuana daily. Apart from marijuana she does have a pacemaker in place. She has history of bradycardia pots syndrome. Blood sugar on arrival 184. Saturation within normal limits. Denies any other symptoms. Chief Complaint: Abdominal Pain Time Seen by MD: 13:41 Primary Care Provider: [facility] Reviewed Notes: Nurses Notes, Medications, Allergies Allergies: Coded Allergies: Vancomycin (Verified Allergy, Severe, 11/16/23) Home Meds Active Scripts Ondansetron Odt 4MG Tab (ZOFRAN PO) 4 Mg Tb, 4 MG PO Q4HP PRN for 5 Days, #25 TAB ODT TAB-DISSOLVE IN MOUTH, THEN SWALLOW Prov:MUSTAPHA MORRIS MD 03/19/24 Metronidazole (Flagyl) 500 Mg Tab, 1 TAB PO TID, #21 TAB Prov:DON SARAVIA MD 11/18/23 Ciprofloxacin Hcl (Ciprofloxacin Hcl) 500 Mg Tab, 1 TAB PO BID, #14 TAB Prov:DON SARAVIA MD 11/18/23 Tramadol Hcl (Ultram) 50 Mg Tab, 50 MG PO Q8HP PRN for 5 Days, #20 BOT Prov:KATARINA FREED MD 04/28/21 Cephalexin (KEFLEX CAPSULE) 250 Mg Cp, 250 MG PO QID for 5 Days, #20 TAB Prov:CRISTIAN ARMENTA MD 04/05/21 Albuterol Sulfate (VENTOLIN MDI) 90 Mcg Ih, 2 PUFF IN Q6HP PRN, #1 AER Prov:THIAGO THURSTON N.P. 04/05/13 Reported Medications Escitalopram Oxalate (ESCITALOPRAM OXALATE) 20 Mg Tab, 1 TAB PO DAILY 11/17/23 Sertraline Hcl (Sertraline Hcl) 50 Mg Tab, 1 TAB PO DAILY 11/17/23 Aripiprazole (Aripiprazole) 5 Mg Tab, 2 TAB PO DAILY 11/17/23 Gabapentin (Gabapentin) 300 Mg Cap, PO 11/17/23 Oxcarbazepine (OXTELLAR XR) 150 Mg Tab 11/17/23 Oxcarbazepine (Trileptal) 600 Mg Tab, 300 MG PO BID, TAB 06/04/16 Trazodone Hcl (Trazodone Hcl) 50 Mg Tab, 50 MG PO HS, TAB 06/04/16 Citalopram Hydrobromide (Citalopram Hydrobromide) 40 Mg Tab, 40 MG PO DAILY for 30 Days, MG 06/04/16 Information Source: Patient, Emergency Med Personnel Mode of Arrival: EMS Severity: Moderate Timing: Hours Duration: Since onset Past Medical History PAST MEDICAL HISTORY: Asthma, Seizures Surgical 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 Family History Family History: Reviewed,noncontributory to illness Social History Smoker: Non-Smoker Alcohol: Denies ETOH Use Drugs: Marijuana Lives In: Home Constitutional: denies: chills, diaphoresis, fatigue, fever, malaise, sweats, weakness, others EENTM: denies: blurred vision, double vision, ear bleeding, ear discharge, ear drainage, ear pain, ear ringing, eye pain, eye redness, hearing loss, mouth pain, mouth swelling, nasal discharge, nose bleeding, nose congestion, nose pain, photophobia, tearing, throat pain, throat swelling, voice changes, others Respiratory: denies: cough, hemoptysis, orthopnea, SOB at rest, shortness of breath, SOB with excertion, stridor, wheezing, others Cardiovascular: reports: chest pain; denies: dizzy spells, diaphoresis, Dyspnea on exertion, edema, irregular heart beat, left arm pain, lightheadedness, palpitations, PND, syncope, others Gastrointestinal: reports: abdominal pain, nausea, vomiting; denies: abdomen distended, blood streaked bowels, constipated, diarrhea, dysphagia, difficulty swallowing, hematemesis, melena, poor appetite, poor fluid intake, rectal bleeding, rectal pain, others Genitourinary: denies: abnormal vagina bleeding, burning, dyspareunia, dysuria, flank pain, frequency, hematuria, incontinence, pain, , vagina discharge, urgency, others Neurological: denies: dizziness, fainting, headache, left sided numbness, left sided weakness, numbness, paresthesia, pre-existing deficit, right sided numb ness, right sided weakness, seizure, speech problems, tingling, tremors, weakness, others Musculoskeletal: denies: back pain, gout, joint pain, joint swelling, muscle pain, muscle stiffness, neck pain, others Integumetry: denies: bruises, change in color, change in hair/nails, dryness, laceration, lesions, lumps, rash, wounds, others Allergic/Immunocompromised: denies: Difficulty Healing, Frequent Infections, Hives, Itching, others Hematologic/Lymphatic: denies: anemia, blood clots, easy bleeding, easy bruising, swollen glands, others Endocrine: denies: excessive hunger, excessive sweating, excessive thirst, excessive urination, flushing, intolerance to cold, intolerance to heat, unexplained weight gain, unexplained weight loss, others Psychiatric: denies: anxiety, bipolar disorder, depression, hopeless, panic disorder, schizophrenia, sleepless, suicidal, others Physical Exam General Appearance: Moderate Distress, Thin HEENT: Normal ENT Inspection, Pharynx Normal, TMs Normal Neck: Full Range of Motion, Non-Tender, Normal, Normal Inspection Respiratory: Chest Non-Tender, Lungs Clear, No Accessory Muscle Use, No Respiratory Distress, Normal Breath Sounds Cardiovascular: No Edema, No JVD, No Murmur, No Gallop, Normal Peripheral Pulses, Regular Rate/Rhythm Breast Exam: Deferred Gastrointestinal: No Organomegaly, Non Tender, No Pulsatile Mass, Normal Bowel Sounds, Soft Genitalia: Deferred Pelvic: Deferred Rectal: Deferred Extremities: No calf tenderness, Normal capillary refill, Normal inspection, Normal range of motion, Non-tender, No pedal edema Musculoskeletal : Apperance: Normal Neurologic: Alert, slicing machine operator II-XII nml as Tested, No Motor Deficits, Normal Affect, Normal Mood, No Sensory Deficits Cerebellar Function: NOT DONE Reflexes: NOT DONE Skin: Pallor Peripheral Pulses: 3+ Radial (R), 3+ Radial (L) Lymphatic: No Adenopathy Was a procedure done? Was a procedure done?: No EKG EKG : Pulse Rate (adult): 85 Cardiac Rhythm: NSR Differential Dx Considerations may include: Anemia Electrolyte imbalance X-Ray, Labs, Meds, VS Vital Signs Date Time Temp Pulse Resp B/P (MAP) Pulse Ox O2 Delivery O2 Flow Rate FiO2 01/08/25 15:17 97.4 80 18 140/90 (107) 98 97.4 01/08/25 15:17 80 18 98 Room Air* 0 21 01/08/25 15:13 80 18 140/90 01/08/25 13:47 85 01/08/25 13:35 98.7 60 18 151/111 98 98.7 01/08/25 13:32 85 Lab Test 01/08/25 15:13 01/08/25 14:16 Range/Units Troponin I High Sensitivity < 3 L < 3 L </=34 ng/L White Blood Count 11.8 H 4.4-10.8 10^3/uL Red Blood Count 4.29 4.0-5.20 10^6/uL Hemoglobin 13.4 12.2-16.2 g/dL Hematocrit 40.8 36.0-46.0 % Mean Corpuscular Volume 95.2 80.0-100.0 fL Mean Corpuscular Hemoglobin 31.3 28.0-32.0 pg Mean Corpuscular Hemoglobin Concent 32.8 32.0-36.0 g/dL Red Cell Distribution Width 12.7 11.8-14.3 % Platelet Count 273 140-450 10^3/uL Mean Platelet Volume 8.1 6.9-10.8 fL Neutrophils (%) (Auto) 86.3 H 37.0-80.0 % Lymphocytes (%) (Auto) 9.4 L 10.0-50.0 % Monocytes (%) (Auto) 3.7 0.0-12.0 % Eosinophils (%) (Auto) 0.0 0.0-7.0 % Basophils (%) (Auto) 0.6 0.0-2.0 % Neutrophils # (Auto) 10.2 H 1.6-8.6 10 ^3/uL Lymphocytes # (Auto) 1.1 0.4-5.4 10 ^3/uL Monocytes # (Auto) 0.4 0-1.3 10 ^3/uL Eosinophils # (Auto) 0 0-0.8 10 ^3/uL Basophils # (Auto) 0.1 0-0.2 10 ^3/uL Nucleated Red Blood Cells 0.0 % Sodium Level 143 136-145 mmol/L Potassium Level 3.9 3.5-5.1 mmol/L Chloride Level 110 H 98-107 mmol/L Carbon Dioxide Level 19 L 20-31 mmol/L Anion Gap 14 5-15 Blood Urea Nitrogen 8 L 9-23 mg/dL Creatinine 0.83 0.550-1.02 mg/dL Glomerular Filtration Rate Calc 101 >90 mL/min BUN/Creatinine Ratio 9.6 L 10.0-20.0 Serum Glucose 163 H 74-106 mg/dL Calcium Level 8.7 8.7-10.4 mg/dL Total Bilirubin 1.2 H 0.2-1.0 mg/dL Aspartate Amino Transferase (AST) 15 13-40 U/L Alanine Aminotransferase (ALT) 20 7-40 U/L Alkaline Phosphatase 59 46-116 U/L Total Protein 6.1 5.7-8.2 g/dL Albumin 3.9 3.2-4.8 g/dL Current Medications Medications (Trade) Dose Ordered Sig/Leta Route Start Time Stop Time Status Last Admin Prochlorperazine Edisylate (Compazine Inj) 10 mg ONCE ONCE IV 01/08/25 13:45 01/08/25 13:46 DC 01/08/25 15:12 Hydromorphone HCl (Dilaudid Injection) 2 mg ONCE ONCE IV 01/08/25 13:45 01/08/25 13:46 DC 01/08/25 15:13 Sodium Chloride 1,000 ml @ 1,000 mls/hr Q1H ONCE IV 01/08/25 13:45 01/08/25 14:44 DC 01/08/25 15:10 Patient alert. Continues to have chest pain nausea vomiting. Vitals stable. Answering questions. EKG reviewed does not show any acute process. Was given Compazine. Was given Zofran in the field. Establish intravenous access. Was given fluids. Was given pain medication. She has a pacemaker in place. He does use marijuana. Explained to the patient. Continue monitoring. Time of 1ST Reevaluation: 13:45 Reevaluation 1ST: Unchanged Patient Education/Counseling: Diagnosis, Treatment, Prognosis Family Education/Counseling: No Family Present SEPSIS Sepsis Screen Physician Orders Electrocardigram (01/08/25 14:36) Chest Portable (01/08/25 13:41) Urinalysis (01/08/25 13:41) Sodium Chloride 0.9% (01/08/25 13:45) Troponin-I Hs (01/08/25 16:41) Drug Screen (01/08/25 13:41) Vital Signs Date Time Temp Pulse Resp B/P (MAP) Pulse Ox O2 Delivery O2 Flow Rate FiO2 01/08/25 15:17 97.4 80 18 140/90 (107) 98 97.4 10/19/25 15:17 80 18 98 Room Air* 0 21 01/08/25 15:13 80 18 140/90 01/08/25 13:47 85 01/08/25 13:35 98.7 60 18 151/111 98 98.7 01/08/25 13:32 85 Laboratory Tests Test 01/08/25 14:16 White Blood Count 11.8 10^3/uL (4.4-10.8) H Medications Medications Dose Ordered Sig/Leta Route Start Time Stop Time Status Last Admin Dose Admin Hydromorphone HCl 2 mg ONCE ONCE IV 01/08/25 13:45 01/08/25 13:46 DC 01/08/25 15:13 Prochlorperazine Edisylate 10 mg ONCE ONCE IV 01/08/25 13:45 01/08/25 13:46 DC 01/08/25 15:12 Sodium Chloride 1,000 ml @ 1,000 mls/hr Q1H ONCE IV 01/08/25 13:45 01/08/25 14:44 DC 01/08/25 15:10 Departure 1 Departure Time of Disposition: 13:46 Impression: Primary Impression: Chest pain of unknown etiology Additional Impression: Intractable nausea and vomiting Disposition: ADMITTED INPATIENT Admit to: Med Surg Condition: Guarded Critical Care Note Critical Care Time?: Yes (90 min-critical care time only) Stability Stability form required: No Heart Score Heart Score: Heart Score Response (Comments) Value History Slightly Suspicious 0 EKG Normal 0 Age <45 0 Risk Factors 1 or 2 risk factors 1 Troponin Normal limit 0 Total 1 MASSIEL HOLMAN MD Jan 08, 2025 13:47
[2025-01-08 14:39] LABS: Hematocrit 40.8 % (36.0-46.0); Hemoglobin 13.4 g/dL (12.2-16.2); Mean Corpuscular Hemoglobin 31.3 pg (28.0-32.0); Mean Corpuscular Volume 95.2 fL (80.0-100.0); Nucleated Red Blood Cells % 0.0 %
[2025-01-08 14:51] LABS: Alanine Aminotransferase 20 U/L (7-40); Albumin 3.9 g/dL (3.2-4.8); Alkaline Phosphatase 59 U/L (46-116); Anion Gap 14 (5-15); BUN/Creatinine Ratio 9.6 (10.0-20.0); Bilirubin, Total 1.2 mg/dL (0.2-1.0); Calcium 8.7 mg/dL (8.7-10.4); Potassium 3.9 mmol/L (3.5-5.1); Sodium 143 mmol/L (136-145); Total Protein 6.1 g/dL (5.7-8.2)
[2025-01-08 14:54] LABS: Blood Urea Nitrogen 8 mg/dL (9-23); Carbon Dioxide 19 mmol/L (20-31); Chloride 110 mmol/L (98-107); Glucose 163 mg/dL (74-106)
--- NOTE | 2025-01-08 14:59 | DVH ---
CHEST RADIOGRAPH Indication: sob Technique: Single frontal view of the chest was obtained Comparison: XY CHEST PORTABLE on DOS: 03/19/24, XY CHEST XRAY 1 VIEW on DOS: 11/17/23, XY CHEST PORTAB LE on DOS: 08/12/23 FINDINGS: Lines and Tubes: None Lungs: No focal consolidation. 1.1 cm bilateral lower lung zone pulmonary nodules, most consistent wi th nipple shadow. Pleura: No effusion. No pneumothorax. Cardiomediastinal contours: Unremarkable. Left-sided approach dual lead pacemaker terminating within right atrium and right ventricle. Bones: No acute osseous abnormality. IMPRESSION: No acute cardiopulmonary disease.
[2025-01-08] MEDS: PROCHLORPERAZINE EDISYLATE 5 MG/ML 2ML VIAL IV ONE (15:12)
[2025-01-08] MEDS: HYDROmorphone HCL 2 MG/ML VL/or syr IV ONE (15:13)
[2025-01-08 15:17] VITALS: BP 140/90; PULSE 80; RESP 18; TEMP 97.4; O2SAT 98
--- NOTE | 2025-01-08 16:26 | ECG ---
[facility] Test Date: 2025-01-08 Test Time: 13:32:31 Pat Name: ADALGISA MOTTA Department: [facility] ED Patient ID: [id number] Room: Gender: F Ammonium Nitrate Neutralizer: JOANNA : 2000 Requested By: MASSIEL HOLMAN Order Number: [id number] Reading MD: Adan White Measurements Intervals [place] Rate: 85 P: 0 MT: 121 QRS: 92 QRSD: 102 T: 59 QT: 424 QTc: 505 Interpretive Statements Atrial-paced rhythm Borderline right axis deviation Borderline Q waves in lateral leads ST elevation, consider inferior injury Prolonged QT interval Electronically Signed On 01-08-2025 17:04:32 PDT by Adan White Please click the below link to view image of tracing.
== END 2025-01-08 21:49 | disposition left against medical advice (07) ==
LOC: ER 13:26 → EDBD 13:26 → ER 21:49
DX: R07.89 Other chest pain (principal); R11.2 Nausea with vomiting, unspecified; F12.90 Cannabis use, unspecified, uncomplicated; J45.909 Unspecified asthma, uncomplicated; Z79.899 Other long term (current) drug therapy; Z88.1 Allergy status to other antibiotic agents; Z95.0 Presence of cardiac pacemaker
CPT/HCPCS: 36415; 71045; 80053; 84484; 85025; 93005; 96361; 96374; 96375; 99285; J0780; J1171; J7030